=== PATIENT | female | born 1960 | race Caucasian/White ===

== ENCOUNTER 2018-08-28 08:32 | Emergency (ER) | payer MEDICAID, OTHER ==
[2018-08-28] MEDS: METHOCARBAMOL 750 MG TAB PO (09:32)
[2018-08-28] MEDS: KETOROLAC 30 MG INJ IM (09:33)
== END 2018-08-28 10:52 | disposition home or self-care (01) ==
LOC: FTE 08:32
DX: M25.511 Pain in right shoulder (principal); F17.210 Nicotine dependence, cigarettes, uncomplicated
CPT/HCPCS: 73030; 73030-RT; 96372; 99284-25